=== PATIENT | female | born 1955 | race Caucasian/White ===

== ENCOUNTER 2017-05-28 23:08 | Emergency (ER) | payer MEDICAID ==
[2017-05-29 02:12] LABS: BASOPHILS 0.2 % (0-2); HEMATOCRIT 39.2 % (36.0-48.0); HEMOGLOBIN 13.8 g/dL (12-16); IMMATURE GRANULOCYTES 0.3 % (0-5); LYMPHOCYTES 8.5 % (15-50); MCH 33.2 pg (26.0-34.0); MCHC 35.2 g/dL (31.0-37.0); MCV 94.2 fL (80.0-100.0); MEAN PLATELET VOLUME 9.9 fL (7.4-10.4); MONOCYTES 9.3 % (2-11); NEUTROPHILS 80.7 % (40-80); PLATELET COUNT 318 10x3/uL (130-400); RBC 4.16 10x6/uL (4.00-5.40); RDW 12.1 % (11.5-14.5); WBC 17.8 10x3/uL (4.8-10.8)
[2017-05-29 02:24] LABS: ALBUMIN 3.4 g/dL (3.4-5.0); ALKALINE PHOSPHATASE 83 U/L (46-116); ALT (SGPT) 76 U/L (10-68); CALC OSMOLALITY 271 mosm/kg (275-300); CALCIUM 8.1 mg/dL (8.5-10.1); CHLORIDE - SERUM 99 mmol/L (98-107); CREATININE - SERUM 0.8 mg/dL (0.6-1.3); GLUCOSE 125 mg/dL (74-106); POTASSIUM - SERUM 3.7 mmol/L (3.5-5.1); PROTEIN - SERUM 7.5 g/dL (6.4-8.2); SODIUM 136 mmol/L (136-145); UREA NITROGEN 10 mg/dL (7-18); eGFR NON AFRICAN AMERICAN 77 mL/min (90-120)
== END 2017-05-29 02:45 | disposition home or self-care (01) ==
LOC: D.ER 23:08
PROVIDERS: Nurse Practitioner Family
DX: J02.9 Acute pharyngitis, unspecified (principal); R59.0 Localized enlarged lymph nodes; K21.9 Gastro-esophageal reflux disease without esophagitis

== ENCOUNTER → 2018-06-16 09:21 | Outpatient (CLI) | payer MEDICAID ==
--- NOTE | 2018-06-19 15:03 | ST ---
PATIENT:SOLOMON CUEVAS MEDICAL RECORD: [id number] SEX: F LOCATION:[facility] ORDER #: ADMISSION DATE: 06/16/18 AGE OF PATIENT: 62 REFERRING PHYSICIAN: INTERPRETING PHYSICIAN: MICHAEL CORONADO MD DATE OF SERVICE: 06/16/2018 PROCEDURE: Nuclear stress test. INDICATION: Angina, abnormal ECG. She was exercised on standard Lexiscan protocol with 27 mCi of sestamibi injected at peak stress, 9 mCi used previously for rest images. FINDINGS: Gated SPECT reveals preserved ejection fraction at 67% with good wall motion and thickening and brightening throughout all segments. SPECT imaging Cardiolite was used as myocardial fusion agent. There is homogeneous uptake throughout all segments at rest and stress with no evidence of inducible ischemia or previous infarction. OVERALL IMPRESSION: 1. This is a normal nuclear stress test with no evidence of inducible ischemia or previous infarction. 2. Gated SPECT reveals a preserved ejection fraction at 67%. In this patient with ongoing symptomatology, the current scan does not suggest the presence of hemodynamically significant coronary artery disease. Evaluate noncardiac etiology of chest pain. TRANSINT:[id number] Voice Confirmation ID: [id number] DOCUMENT ID: [id number] MICHAEL CORONADO MD at 1503 CC: [id number] DICTATION DATE: 06/16/18 1533 MATH AND SCIENCES DEPARTMENT CHAIR: 06/17/18 0911 DEP CLI 06/16/18 [place] [id number] [place] [id number]
--- NOTE | 2018-06-23 14:26 | EC ---
PATIENT:SOLOMON CUEVAS DATE OF SERVICE: 06/16/18 SEX: F MEDICAL RECORD: [id number] DATE OF : 57 LOCATION:[facility] AGE OF PATIENT: 62 ADMISSION DATE: 06/16/18 REFERRING PHYSICIAN: INTERPRETING PHYSICIAN: CHUCKIE CLEANING MD ECHOCARDIOGRAM REPORT ECHO CHARGES 4 ECHO COMPLETE Date: 06/16/18 CLINICAL DIAGNOSIS: MURMUR/ANGINA/ABNORMAL EKG ECHOCARDIOGRAPHIC MEASUREMENTS (adult normal given) AC root (d.<3.7cm) 3.1 cm LV Septum d (<1.2 cm> 1.3 cm Valve Excursion 1.8 cm LV Septum (systole) 1.8 cm Left Atria (s.<4.0cm> 4.1 cm LVPW d(<1.2cm) 1.3 cm RV (d.<2.3cm) 2.9 cm LVPW (sytole) 1.9 cm LV diastole(<5.6CM) 5.4 cm MV E-F(>70mm/sec) cm LV systole 3.5 cm LVOT Diameter 2.0 cm MV exc.(>10mm) cm Est.ejection fraction (50-75%) % DOPPLER: LVIT cm/sec A 84.0 cm/sec E 92.0 cm/sec LA cm/sec RVSP 23.4 mmHg LVOT 95.0 cm/sec AOP1/2T m/s Asc. Ao 145 cm/sec RVOT 83.0 cm/sec RA cm/sec PA 111 cm/sec AV Gradient Peak 8.4 mmHg AV Mean 4.1 mmHg AV Area 1.6 cm MV Gradient Peak 4.7 mmHg MV Mean 1.7 mmHg MV Area cm COMMENTS: OP - HC Sales Management Trainee: 1 ANDREW SANTIAGO Quote Clerk: 3 Dr. Asher TAPE# PACS Pericardial Effusion N DATE OF SERVICE: 06/16/2018 Adequate 2-D, color-flow and spectral Doppler, and M-mode. Mild LVH. LV internal dimensions are normal. Wall motion is normal. EF is 55%. Aortic valve is tricuspid. No evidence of stenosis by Doppler interrogation. Left atrium is upper limits of normal to mildly dilated at 4.1 cm. Mitral valve shows no prolapse. Mild MR. Right-sided chambers are grossly normal. Mild TR. ECHOCARDIOGRAM REPORT [id number] SOLOMON CUEVAS TRANSINT:[id number] Voice Confirmation ID: [id number] DOCUMENT ID: [id number] CHUCKIE CLEANING MD at 1426 CC: [id number] DICTATION DATE: 06/17/18 1300 HOT DOG VENDOR: 06/17/18 1425 DEP CLI 06/16/18 [place] [id number] [place] [id number]
== END | disposition home or self-care (01) ==
LOC: D.HCCARDIO 09:21
PROVIDERS: ATTEND Internal Medicine Interventional Cardiology
DX: R07.9 Chest pain, unspecified (principal); I20.9 Angina pectoris, unspecified